=== PATIENT | female | born 1960 | race Caucasian/White ===

== ENCOUNTER 2018-05-02 11:18 | Inpatient (IN) | payer OTHER ==
[~2018-05-02] VITALS: Wt 72.6 kg
[~2018-05-02 11:18] MED LIST: CRUTCH4 USE; Coumadin PO; DIAZ10 PO; DIAZ5 PO; ENAL20; ERGO400 PO; FOLI1 PO; HYDACE10B; HYDACE10B PO; HYDACE5 PO; HYDCHL12.5 PO; HYDCHL25; HYDCHL25 PO; HYDROCHLOROTHIAZIDE; LEVO.5OPSO; LEVSOD125 PO; LISI10 PO; LISI20; LISI20 PO; MEDICAL MARIJUANA; METH10; METO50 PO; METOPROLOL; OMEP20ER PO; OXYC15ER PO; PRODEXEL PO; PROM25 PO; PYRI100 PO; RXCLIN PO; THYROID MEDICATION; WARF1 PO; WARF5; WARF5 PO; WARF6 PO; [UNRECOGNIZED DRUG - REMARK]
[2018-05-02 11:35] LABS: Calcium, Ionized (POC) 0.94 mmol/L (1.10-1.46); Chloride (POC) 102 mmol/L (98-108); Creatinine (POC) 0.6 mg/dL (0.6-1.0); Glucose (ISTAT POC) 144 mg/dL (70-99); Hemoglobin (POC) 14.3 g/dL (12.0-16.0); Potassium (POC) 3.4 mmol/L (3.5-5.5); Sodium (POC) 136 mmol/L (135-148); Total CO2 (POC) 18 mmol/L (21-32)
[2018-05-02 11:54] LABS: BASOPHILS ABSOLUTE AUTO 0.12 K/mm3 (0.00-0.23); BASOPHILS PERCENT AUTO 1 % (0-2); EOSINOPHILS ABSOLUTE AUTO 0.02 K/mm3 (0.00-0.68); EOSINOPHILS PERCENT AUTO 0 % (0-6); Hematocrit 36.6 % (33.0-51.0); Hemoglobin 12.6 g/dL (11.5-16.0); IMMATURE GRAN ABSOLUTE AUTO 0.13 K/mm3 (0.00-0.10); IMMATURE GRAN PERCENT AUTO 1 % (0-1); LYMPHOCYTES ABSOLUTE AUTO 1.72 K/mm3 (0.84-5.20); LYMPHOCYTES PERCENT AUTO 12 % (21-46); MONOCYTES ABSOLUTE AUTO 0.85 K/mm3 (0.16-1.47); MONOCYTES PERCENT AUTO 6 % (4-13); Mean Corpuscular HGB Conc 34.4 g/dL (31.5-36.5); Mean Corpuscular Volume 105 fL (80-100); Mean Platelet Volume 10.5 fL (9.1-12.4); NEUTROPHILS ABSOLUTE AUTO 11.92 K/mm3 (1.96-9.15); NEUTROPHILS PERCENT AUTO 81 % (41-73); Platelet Count 289 K/mm3 (150-400); RDW Coefficient Variation 13.8 % (11.7-14.2); RDW Standard Deviation 53.4 fL (35.1-46.3); White Blood Cell Count 14.76 K/mm3 (4.00-11.30)
[2018-05-02] MEDS ORDERED: **incomplete med rec (11:57)
[2018-05-02] MEDS ORDERED: FURO20 PO (12:05)
[2018-05-02] MEDS ORDERED: DIAZ10 PO (12:05)
[2018-05-02] MEDS ORDERED: POTA10T PO (12:05)
[2018-05-02] MEDS ORDERED: LEVSOD75 PO (12:05)
[2018-05-02] MEDS ORDERED: WARF1 PO (12:06)
[2018-05-02] MEDS ORDERED: SERT50 PO (12:06)
[2018-05-02 12:14] LABS: International Normalized Ratio 1.69; Prothrombin Time Results 17.1 Sec (9.7-11.5)
[2018-05-02 12:17] LABS: Alanine Aminotransfer (ALT/SGP 47 U/L (12-78); Albumin, Blood 3.9 g/dL (3.4-5.0); Alk Phos 91 U/L (50-136); Anion Gap 17 mmol/L (6-16); Aspartate Aminotrans (AST/SGOT 131 U/L (12-37); Bilirubin, Total 0.9 mg/dL (0.1-1.0); Blood Urea Nitrogen 15 mg/dL (8-24); Bun/Creatinine Ratio 25.8 (12.0-20.0); CO2, Blood 18 mmol/L (21-32); Calcium, Blood 8.9 mg/dL (8.5-10.1); Chloride, Blood 100 mmol/L (98-108); Creatinine, Blood 0.58 mg/dL (0.40-1.00); Globulin, Blood 4.1 g/dL (2.2-4.0); Glomerular Filtration Rate >60 (60-); Glucose, Blood 144 mg/dL (70-99); Potassium, Blood 3.4 mmol/L (3.5-5.5); Sodium, Blood 135 mmol/L (136-145)
[2018-05-02 12:25] LABS: PCO2 Arterial 26.1 mmHg (35-45); PO2 Arterial 198 mmHg (80-100); pH Blood Arterial 7.37 (7.35-7.45)
--- NOTE | 2018-05-02 13:30 | NUR ---
RECEIVED TELEPHONE REPORT FROM MYLES MARIEE, IN ER, PATIENT ARRIVED FROM ER TO ROOM 14 VIA STRETCHER, AND ON MECHANICAL VENTILATION, SETTINGS 14///FiO2 30 %, PATIENT MOVED TO ICU BED VIA SLIDER, PLACED ON MONITOR, SECOND UNIT OF FFPs STARTED, PATIENT ON PROPOFOL AT 20 MCG, PATIENT SHOWS NO RESPONSE TO PAINFUL STIMULI, LEFT PUPIL 5 CM AND NONREACTIVE, RIGHT PUPIL 2 CM AND NONREACTIVE, PATIENT OVERALL FLACCID, YAO CATHETER IN PLACE, PIV'S ON LEFT AND RIGHT FOREARMS, BRUISES NOTED OVER ENTIRUE RIGHT UPPER ARM AND ON RIGHT LOWER EXTREMITY, DR. JACKSON ATTENDING HOSPITALIST, DR. ASHBY CONSULTED, PALLIATIVE CARE CONSULTED, DR. ASHBY AND KING PERDOMO, PALLIATIVE CARE AT BEDSIDE TO SPEAK WITH FAMILY, DECIDED COMFORT CARE AND STATED THAT PATIENT "DID NOT WANT TO BE AN ORGAN DONOR", COMFORT CARE ORDERS PLACED BY KING PERDOMO, PALLIATIVE CARE PER DR. ASHBY, PATIENT TO BE EXTUBATED.
[2018-05-02] MEDS ORDERED: LISI20 PO (16:07)
[2018-05-02] MEDS ORDERED: Omeprazole20 M1 PO (16:08)
[2018-05-02] MEDS ORDERED: ANORO ELLIPTA1 EACH INH (16:11)
--- NOTE | 2018-05-02 16:25 | NUR ---
PATIENT WAS PREMEDICATED WITH 4 MG MORPHINE IV, EXTUBATED AT 1625.
--- NOTE | 2018-05-02 17:40 | NUR ---
Initial Visit: Palliative Care Consult for end of life and comfort care. Pt resting in bed and is unresponsive. Pt appears comfortable. Dr Medina present during visit. Pt's Daniel and sister present during visit. Dr Medina discussed Pt's prognosis. Family V/U of prognosis and makes a decision to withdraw treatment including extubation and comfort care. Educated family on comfort care philosophy. Family tearful throughout visit and offered emotional support. Family wishes to wait for extubation until rest of family arrives. Placed comfort care order, comfort care order set, and discontinued maintenance medications per V/O from Dr Medina. Spoke with Pt's nurse and she is agreeable to plan. Director Building Monserrat also present during visit and will remain for additional spiritual and emotional support. Plan is to monitor for symptom management.
--- NOTE | 2018-05-02 17:50 | NUR ---
SHIFT SUMMARY NOTE: PATIENT ARRIVED IN UNIT FROM ED AT 1330 HOURS VIA STRETCHER, PATIENT WAS INTUBATED WITH SETTINGS: 14//400/FiO2 30 %, PATIENT WAS ON PROPOFOL AT 20 MCG, UNRESPONSIVE, NO REACTION TO PAINFUL STIMULI, PUPILS UNEQUAL AND NONREACTIVE, DR. ASHBY CONSULTED BY HOSPITALIST DR. JACKSON, PROPOFOL WAS TURNED OFF, PATIENT NOT RESTRAINT, GENERALIZED FLACCIDNESS, DECISION WAS MADE TO MAKE PATIENT DNR/DNI, PLACED ON COMFORT CARE AND EXTUBATED AT 1625, FAMILY AT BEDSIDE AFTER EXTUBATION, PALLIATIVE CARE IN TO SEE PATIENT AND SPEAK WITH FAMILY, COMFORT CARE ORDERS PLACED, PATIENT CONTINUES TO BREATH ON OWN, HR IN 50s AND NSR, YAO CATHETER IN PLACE, PATIENT SHOWS BRUISES ON RIGHT UPPER EXTREMITY AND RIGHT LOWER EXTREMITY FROM FALL ONE WEEK AGO, PATIENT ALSO ON COUMADIN, CALL LIGHT IN REACH, WILL CONTINUE TO MONITOR AND GIVE REPORT TO ONCOMING CASING RUNNING MACHINE TENDER.
--- NOTE | 2018-05-02 17:56 | NUR ---
Present at bedside with family before and after extubation. Prayer for a peaceful transition provided to good effect. Family tearful and appropriate. They verbalize acceptance of POC. Youngest dtr very emotional. She responded well to gentle branch credit counselor. I will remain available.
--- NOTE | 2018-05-02 19:15 | NUR ---
PT APPEARS COMFORTABLE. AND FAMILY AT BEDSIDE. EDUCATED ABOUT MEDS AND IF SHE APPEARS TO BE IN DISTRESS TO NOTIFY RN. WARM BLANKET PROVIDED FOR PT. COMFORT CARE CART AT DOOR FOR FAMILY WITH REFRESHMENTS.
--- NOTE | 2018-05-03 02:28 | NUR ---
PT PEACEFULLY WITH RN AT BEDSIDE. CALLED AND LEFT MESSAGE TO CALL HOSPITAL. CALLED DR. RAMIREZ AND NOTIFIED OF .
== END 2018-05-03 02:20 | DRG 84 ==
LOC: ER 11:18 → ICUW 13:03
PROVIDERS: Emergency Medicine; ADMIT Internal Medicine
PROC: 0BH17EZ Insertion of Endotracheal Airway into Trachea, Via Natural or Artificial Opening (ICD-10-PCS; principal; 2018-05-02)
PROC: 5A1935Z Respiratory Ventilation, Less than 24 Consecutive Hours (ICD-10-PCS; 2018-05-02)
PROC: 30283B1 Transfusion of Nonautologous 4-Factor Prothrombin Complex Concentrate into Vein, Percutaneous Approach (ICD-10-PCS; 2018-05-02)
DX: S06.369A Traumatic hemorrhage of cerebrum, unspecified, with loss of consciousness of unspecified duration, initial encounter (principal); W19.XXXA Unspecified fall, initial encounter; Z91.81 History of falling; Z86.711 Personal history of pulmonary embolism; Z79.01 Long term (current) use of anticoagulants; Z51.5 Encounter for palliative care; Z86.718 Personal history of other venous thrombosis and embolism; I10 Essential (primary) hypertension; J44.9 Chronic obstructive pulmonary disease, unspecified; E03.9 Hypothyroidism, unspecified; F17.210 Nicotine dependence, cigarettes, uncomplicated; F41.9 Anxiety disorder, unspecified; K21.9 Gastro-esophageal reflux disease without esophagitis; R40.2432 Glasgow coma scale score 3-8, at arrival to emergency department
CPT/HCPCS: 31500; 31720; 36415; 36430; 36600; 70450; 71045; 80047; 80053; 82803; 84484; 85014; 85025; 85610; 85730; 86850; 86900; 86901; 93005; 93010; 94002; 96374; 96375; 99291-25; 99292; C9132; J2270; J3010; J7050; P9059